=== PATIENT | female | born 1980 | race Caucasian/White ===

== ENCOUNTER 2018-01-20 19:05 | Inpatient (IN) | payer OTHER ==
[~2018-01-20] VITALS: Ht 172.7 cm; Wt 136.1 kg
[~2018-01-20 19:05] MED LIST: ACIDOPHILUS1 EACH PO; AMMONIUM LACTA385 GM TOP; ATORVASTATIN CA40 M1 PO; CLONAZEPAM1 M2 PO; CLOZARIL100 M1 PO; COLACE100 M1 PO; DDAVP0.2 MG PO; DIPHENHYDRAMINE25 M4 PO; DITROPAN XL5 M1 PO; FLUOXETINE HCL20 M2 PO; GABAPENTIN300 M2 PO; HUMALOG100 UNIT/2; IBUPROFEN600 M1 PO; JANUVIA100 M1 PO; LEVOTHYROXINE75 MCG PO; MAGNESIUM OXID400 M1 PO; METFORMIN HCL500 M2 PO; MINIPRESS5 MG PO; NAPROXEN375 M2 PO; NOVOLIN 70100 UNIT/1 SC; PANTOPRAZOLE SO40 M1 PO; PERIOGARD473 ML PO; PROAIR HFA8.5 GM INH; PROVERA10 MG PO; QUETIAPINE FUM100 M1 PO; SENNA8.6 M3 PO; SYMBICORT 16010.2 GM INH; TOPROL XL100 M1 PO; TRAMADOL HCL50 M1 PO
--- NOTE | 2018-01-20 19:36 | ED PSYCHIATRIC COMPLAINT ---
See Addendum History of Present Illness General Chief Complaint: Psychiatric Related Complaint Stated Complaint: BIBA +SI, PT ON PEER Source: patient Exam Limitations: no limitations Vital Signs & Intake/Output Vital Signs & Intake/Output Vital Signs Date Time Temp Pulse Resp B/P B/P Pulse O2 O2 Flow FiO2 Mean Ox Delivery Rate 01/22 1407 97.0 95 18 107/61 95 01/22 0823 97.6 89 18 129/66 94 Room Air 01/21 2123 97.7 81 18 126/75 97 Room Air Allergies Coded Allergies: citalopram (From CELEXA) (Intermediate, RASH 11/30/17) escitalopram (From LEXAPRO) (Intermediate, RASH 11/30/17) lamotrigine (From LAMICTAL) (Intermediate, RASH 11/30/17) aluminum hydroxide (From MAALOX MAXIMUM STRENGTH) (Mild, RASH 11/30/17) magnesium hydroxide (From MAALOX MAXIMUM STRENGTH) (Mild, RASH 11/30/17) simethicone (From MAALOX MAXIMUM STRENGTH) (Mild, RASH 11/30/17) Triage Nurses Notes Reviewed? yes HPI: 37-year-old female presented to the emergency department reporting that about 4 hours ago while she was at the program center she lives in [facility] she was watching TV and she began having thoughts of harming herself. She states that she was watching crime show when she turned onto if this would help however it did not she continue to have these thoughts. She denies any auditory or visual hallucinations. She states after this occurred she broken all of oil bottle and began to cut both of her arms. She states that she was going to cut her neck but she was "too weak". She states that she continues to feel this way in the emergency department. She denies any homicidal ideation. She states that the staff had found her and called 911 and she was brought in by ambulance. She states her only support system is a staff that she has where she lives. She reports numerous incidences in the past with trying to hurt herself. (Lex MELTON,Monica) Reconcile Medications Albuterol Sulfate (Proair Hfa) 90 MCG HFA.AER.AD 1-2 PUF INH Q4P PRN SOB/ WHEEZE (Reported) Atorvastatin Calcium 40 MG TABLET 1 TAB PO QPM CHOLESTEROL (Reported) Budesonide/Formoterol Fumarate (Symbicort 160-4.5 Mcg Inhaler) 160 MCG-4.5 MCG/ ACTUATION HFA.AER.AD 2 PUFF INH BID BREATHING PROBLEMS (Reported) Clonazepam 1 MG TABLET 1 TAB PO TID MENTAL HEALTH (Reported) Clozapine (Clozaril) 100 MG TABLET 4 TAB PO QPM MENTAL HEALTH (Reported) Desmopressin Acetate (Ddavp) 0.2 MG TABLET 1 TAB PO QPM NOCTURNAL ENURESIS ( Reported) Docusate Sodium (Colace) 100 MG CAPSULE 100 MG PO DAILY CONSTIPATION ( Reported) Fluoxetine HCl 20 MG CAPSULE 1 CAP PO DAILY mental health (Reported) Gabapentin 300 MG CAPSULE 600 MG PO TID anxiety Ibuprofen 600 MG TABLET 1 TAB PO Q6-8P PRN PAIN/FEVER (Reported) Insulin Lispro (Humalog) 100 UNIT/ML VIAL (Unknown Dose) DIABETES (Reported) SLIDING SCALE FOLLOWS: 150-199 2 UNITS 200-249 4 UNITS 250-299 6 UNITS 300-349 8 UNITS 350-399 10 UNITS >400 12 UNITS AND CALL Lactobacillus Acidophilus (Acidophilus) 1 EACH CAPSULE 1 CAP PO DAILY GI HEALTH (Reported) Levothyroxine Sodium 75 MCG TABLET 1 TAB PO DAILY AC THYROID PROBLEMS ( Reported) Magnesium Oxide 400 MG TABLET 1 TAB PO DAILY VITAMIN SUPPORT (Reported) Medroxyprogesterone Acetate (Provera) 10 MG TABLET 1 TAB PO QD HORMONE ( Reported) 10 DAYS A MONTH 14TH-24TH Metformin HCl (Metformin HCl ER) 500 MG TAB.ER.24 1,000 MG PO BID DIABETES ( Reported) Metoprolol Succ XL (Toprol XL) 100 MG TAB.ER.24H 100 MG PO DAILY TACHYCARDIA (Reported) Novolin 70/30 (Novolin 70-30 100 Unit/Ml Vial) 100 UNIT/ML (70-30) VIAL 92 UNITS SC BID DIABETES (Reported) Oxybutynin Chloride (Ditropan XL) 5 MG TAB.ER.24 5 MG PO BID BLADDER HEALTH ( Reported) Pantoprazole Sodium 40 MG TABLET.DR 40 MG PO DAILY ACID REFLUX (Reported) Prazosin HCl (Minipress) 5 MG CAPSULE 5 MG PO BID HIGH BLOOD PRESSURE ( Reported) Sennosides (Senna) 8.6 MG TABLET 2 TAB PO BID PRN CONSTIPATION (Reported) Sitagliptin Phosphate (Januvia) 100 MG TABLET 100 MG PO DAILY DIABETES ( Reported) (Bethany MILLER,Ruben) Past History Travel History Traveled to [place] past 21 day No Medical History Any Pertinent Medical History? 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 No (Monica Harrington) Review of Systems Review of Systems Constitutional: Reports: see HPI. EENTM: Reports: no symptoms. Respiratory: Reports: no symptoms. Cardiovascular: Reports: no symptoms. GI: Reports: no symptoms. Genitourinary: Reports: no symptoms. Musculoskeletal: Reports: no symptoms. Skin: Reports: no symptoms. Neurological/Psychological: Reports: see HPI. Hematologic/Endocrine: Reports: no symptoms. Immunologic/Allergic: Reports: no symptoms. All Other Systems: Reviewed and Negative (Monica Harrington) Physical Exam Physical Exam General Appearance: well developed/nourished, no apparent distress, alert, awake , comfortable Head: atraumatic, normal appearance Eyes: Bilateral: normal appearance. Ears, Nose, Throat: hearing grossly normal Neck: normal inspection, full range of motion Respiratory: normal breath sounds, chest non-tender, no respiratory distress Cardiovascular: tachycardia, regular rhythm Extremities: normal range of motion Neurological/Psychiatric: no motor/sensory deficits, awake, alert, depressed affect Appearance/Memory/Insight: disheveled, impaired insight Behavoir/Eye Contact/Speech: cooperative, normal speech, good eye contact Thoughts/Hallucinations: normal thought pattern, no apparent hallucination Skin: normal color, warm/dry, numerous scattered linear lacerations on bilateral upper arms. most lesions have attained hemostasis. 2 lesions on right arm and 1 lesions on left arm are slightly deeper and continue to ooze blood. no signs of infection. minimally tender to touch. dried blood easily irrigated with normal saline. Medical Clearance Statement * patient denies further consideration of suicide * outpt. psych referral * no evidence of toxic ingestion * on re-evaluation the patient is awake and alert with normal speech and normal gait. The patient is clinically sober and safe for discharge / detox referral SAD PERSONS SAD PERSONS Response Value Age <19 or >45 years? yes 1 Depression/Hopelessness? yes 2 Previous Attempts/Psych Care yes 1 Rational Thinking Loss? yes 2 Single//? yes 1 Organized/Serious Attempt yes 2 Social Support? has no support 1 Stated Future Intent? yes 2 Total 12 SAD PERSONS Done? yes (Lex MELTON,Monica) Progress Differential Diagnosis: drug intoxication, electrolyte abnormality, hypoglycemia , suicidal ideation r/t psychosis Plan of Care: Orders Procedure Date/time Status Continuous Observation Monitor 01/22 1900 Active Admit to inpatient psych 01/22 1702 Active Continuous Observation Monitor 01/22 1500 Active Continuous Observation Monitor 01/22 1100 Active Continuous Observation Monitor 01/22 0700 Active Continuous Observation Monitor 01/22 0619 Active Current Medications Sig/Jeff Start time Last Medication Dose Stop Time Status Admin Medroxyprogesterone 10 MG DAILY 01/26 0900 AC Acetate (Provera 10 MG Tab) Nicotine 21 MG DAILY PRN 01/22 1315 UNVr (Nicoderm) Atorvastatin Calcium 40 MG QPM 01/21 2100 UNVr 01/21 (Lipitor) 2200 Clozapine 400 MG QPM 01/21 2100 UNVr 01/21 (Clozaril 100MG Tab) 2200 Metformin HCl 1,000 MG 0800,1700 01/21 1700 UNVr 01/22 (Glucophage) 0754 Calcium Carbonate 500 MG Q4-6 PRN PRN 01/21 1300 UNVr (TUMS) Omeprazole 40 MG DAILY AC 01/21 902 UNVr 01/22 (Prilosec) 0754 Oxybutynin Chloride 5 MG BID 01/21 902 UNVr 01/22 (Ditropan) 0932 Prazosin HCl 5 MG BID 01/21 902 UNVr 01/22 (Minipress 5 MG) 0932 Sitagliptin Phosphate 100 MG DAILY 01/21 902 UNVr 01/22 (JANUVIA) 0932 Insulin Human Isoph/ 92 UNITS BID 01/21 901 UNVr 01/22 Insulin Regular 0932 (Novolin 70/30) Albuterol Sulfate See Dose Q4P PRN 01/21 0900 UNVr (Ventolin) Insts (1) Budesonide/ 2 PUF BID 01/21 900 AC 01/22 Formoterol Fumarate 0932 (Symbicort) Clonazepam 1 MG TID 01/21 900 UNVr 01/22 (Klonopin 1MG Tab) 01/28 0859 1400 Desmopressin Acetate 0.2 MG DAILY 01/21 900 UNVr 01/22 (Ddavp 0.1MG Tab) 0932 Fluoxetine HCl 20 MG DAILY 01/21 900 UNVr 01/21 (Prozac) 1031 Gabapentin 600 MG TID 01/21 900 UNVr 01/22 (Neurontin) 1400 Metoprolol Succinate 100 MG DAILY 01/21 900 UNVr 01/22 (Toprol Xl) 0932 Levothyroxine Sodium 0.075 MG DAILY AC 01/22 852 UNVr 01/22 (Synthroid) 0754 Dose Instructions: (1)Albuterol Sulfate (Ventolin): 1-2 PUF 37 year old female with history of suicide attempts presented with suicidal ideation and self-inflicted lacerationsto bilateral upper extremities. Upper extremity lesions irrigated with normal saline and PA student performed suturing. Signed out to Dr. Uribe. Hand-Off Endorsed To: Roberto Uribe MD Endorsed Time: 2099 Pending: consult, other (suture of laceration) (Monica Harrington) Hand-Off Endorsed To: Delmer Young MD Endorsed Time: 1899 Pending: consult (Ruben Sims MD) Hand-Off Endorsed To: Ruben Sims MD Endorsed Time: 699 Pending: other (BED SEARCH) (Delmer Young MD) Departure Departure Disposition: STILL A PATIENT Condition: Stable Referrals: Unknown (PCP/Family) Departure Forms: Customer Survey General Discharge Information (Monica Harrington) Departure Clinical Impression Primary Impression: Suicidal ideation Secondary Impressions: Injury, self-inflicted, Laceration PA/COMPUTER BOOKKEEPER Co-Sign Statement Statement: ED Attending supervision documentation- [] I saw and evaluated the patient. I have also reviewed all the pertinent lab results and diagnostic results. I agree with the findings and the plan of care as documented in the PA's/COMPUTER BOOKKEEPER's documentation. x[] I have reviewed the ED Record and agree with the PA's/COMPUTER BOOKKEEPER's documentation. [] Additions or exceptions (if any) to the PAs/COMPUTER BOOKKEEPER's note and plan are summarized below: [] (Rony MILLER,Roberto Buckner) Psych Admission Note Psychiatric Admission: I have seen and evaluated JOSIE PATEL. I have also reviewed all the pertinent lab results and diagnostic results. JOSIE PATEL will be admitted to our inpatient Psychiatric unit for treatment and care. Patient was signed out to me by Dr. Sims at 3 PM (Bro Rajput DO) Procedures Laceration/Wound Repair Laceration/Wound Repair: Wound Location: bilateral upper extremities Wound's Depth, Shape: linear Wound Length (cm): 2 Wound Explored: irrigated extensively Irrigated w/ Saline (ccs): 200 Betadine Prep? Yes Anesthesia: 1% lidocaine Volume Anesthetic (ccs): 5 Wound Repaired With: sutures Suture Size/Type: 4:0, nylon Number of Sutures: 13 Sterile Dressing Applied: Yes Tetanus Status: up to date Progress: Procedure performed by PA student with my direct supervision. Multiple superficial lacerations to bilateral forearms. 4 wounds were closed using stitches, these wounds were slightly deeper than the remainder of superficial lacerations. Patient tolerated procedure well. (Miracle Robertson) as documented in the PA's/COMPUTER BOOKKEEPER's documentation. x[] I have reviewed the ED Record and agree with the PA's/COMPUTER BOOKKEEPER's documentation. [] Additions or exceptions (if any) to the PAs/COMPUTER BOOKKEEPER's note and plan are summarized below: [] (Rony MILLER,Roberto Buckner) Procedures Laceration/Wound Repair Laceration/Wound Repair: Wound Location: bilateral upper extremities Wound's Depth, Shape: linear Wound Length (cm): 2 Wound Explored: irrigated extensively Irrigated w/ Saline (ccs): 200 Betadine Prep? Yes Anesthesia: 1% lidocaine Volume Anesthetic (ccs): 5 Wound Repaired With: sutures Suture Size/Type: 4:0, nylon Number of Sutures: 13 Sterile Dressing Applied: Yes Tetanus Status: up to date Progress: Procedure performed by PA student with my direct supervision. Multiple superficial lacerations to bilateral forearms. 4 wounds were closed using stitches, these wounds were slightly deeper than the remainder of superficial lacerations. Patient tolerated procedure well. (Miracle Robertson)
[2018-01-20 21:59] LABS: ABSOLUTE BASOPHIL COUNT 0 /CUMM (0.0-0.2); ABSOLUTE EOSINOPHIL COUNT 0 /CUMM (0.0-0.7); ABSOLUTE LYMPH COUNT 3.4 /CUMM (1.2-3.4); ABSOLUTE MONOCYTE COUNT 0.4 /CUMM (0.10-0.60); BASOPHIL % 0.2 % (0.0-2.0); EOSINOPHIL % 0.1 % (0-5); GRANULOCYTE % 72.5 % (42.2-75.2); HEMATOCRIT 36.2 % (37-47); MEAN CORPUSCULAR HGB 20.8 PG (27.0-31.0); MEAN CORPUSCULAR HGB CONC 30.7 G/DL (33.0-37.0); MEAN CORPUSCULAR VOLUME 67.8 FL (81.0-99.0); MEAN PLATELET VOLUME 8.3 FL (7.4-10.4); PLATELET COUNT 392 /CUMM (130-400); RBC DISTRIBUTION WIDTH 17.9 % (11.5-14.5); RED BLOOD CELL CT 5.35 /CUMM (4.20-5.40); WHITE BLOOD CELL COUNT 13.8 /CUMM (4.8-10.8)
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
--- NOTE | 2018-01-22 11:04 | ED PSYCHIATRIST/APRN CONSULT ---
Psychiatrist/CROWN WHEEL ASSEMBLER ED Consult Assessment and Plan: PROGRESS NOTE SUBJECTIVE: Patient sleeping in Crisis bed, easily awoken to voice. Patient known to this software writer from outside hospital. Patient reports that she has continued SI and thoughts to self-harm continuing today. Patient denies HI/AVH. Patient states that the last couple of weeks have been difficult and that she cut herself worse than usual. Patient states she does not feel safe in the community and feels she needs to be inpatient at this time. Patient requesting nicotine patch. Patient denies other side effects to medications, however feels that they're not as effective as they should be and warrants a medication change. Patient vague on details, reports "I don't know" to many questions, including triggering event. Patient states that she's been able to eat and sleep. No abnormal movements reported. Patient asking if bed available, preferring [facility]. OBJECTIVE: Per staff, patient remains isolative in room with lights out, resting. No complaints. Patient with in behavioral control, adherent with meds and staff instructions. No overnight events. Vital signs stable. Current Medications Sig/Jeff Start time Last Medication Dose Route Stop Time Status Admin Albuterol Sulfate See Dose Q4P PRN 01/21 900 UNVr Insts (1) INH Atorvastatin Calcium 40 MG QPM 01/21 2100 UNVr 01/21 PO 2200 Budesonide/ 2 PUF BID 01/21 900 AC 01/22 Formoterol Fumarate INH 0932 Calcium Carbonate 500 MG Q4-6 PRN PRN 01/21 1300 UNVr PO Clonazepam 0 .STK-MED ONE 01/22 0920 DC PO Clonazepam 0 .STK-MED ONE 01/21 2142 DC PO Clonazepam 0 .STK-MED ONE 01/21 1436 DC PO Clonazepam 1 MG TID 01/21 900 UNVr 01/22 PO 01/28 0859 0932 Clozapine 400 MG QPM 01/21 2100 UNVr 01/21 PO 2200 Desmopressin Acetate 0.2 MG DAILY 01/21 900 UNVr 01/22 PO 0932 Fluoxetine HCl 20 MG DAILY 01/21 900 UNVr 01/21 PO 1031 Gabapentin 0 .STK-MED ONE 01/21 1436 DC PO Gabapentin 600 MG TID 01/21 900 UNVr 01/22 PO 0932 Insulin Human Isoph/ 92 UNITS BID 01/21 901 UNVr 01/22 Insulin Regular SC 0932 Levothyroxine Sodium 0.075 MG DAILY AC 01/22 852 UNVr 01/22 PO 075 Medroxyprogesterone 10 MG DAILY 01/26 900 AC Acetate PO Metformin HCl 1,000 MG 0800,1700 01/21 1700 UNVr 01/22 PO 075 Metoprolol Succinate 100 MG DAILY 01/21 900 UNVr 01/22 PO 0932 Nicotine 21 MG ONCE ONE 01/21 1215 DC 01/21 TOP 01/21 1216 1215 Nicotine 0 .STK-MED ONE 01/21 1159 DC [facility] Omeprazole 0 .STK-MED ONE 01/22 0738 DC PO Omeprazole 40 MG DAILY AC 01/21 902 UNVr 01/22 PO 075 Oxybutynin Chloride 5 MG BID 01/21 902 UNVr 01/22 PO 0932 Prazosin HCl 5 MG BID 01/21 902 UNVr 01/22 PO 0932 Sitagliptin Phosphate 100 MG DAILY 01/21 902 UNVr 01/22 PO 0932 Dose Instructions: (1)Albuterol Sulfate: 1-2 PUF Laboratory Tests 01/20/180: Anion Gap 11, Estimated GFR 57 L, BUN/Creatinine Ratio 9.1, Glucose 113 H, Calcium 9.9, Total Bilirubin 0.3, AST 22, ALT 46, Alkaline Phosphatase 86, Total Protein 6.9, Albumin 3.9, Globulin 3.0, Albumin/Globulin Ratio 1.3, CBC w Diff NO MAN DIFF REQ, RBC 5.35, MCV 67.8 L, MCH 20.8 L, MCHC 30.7 L, RDW 17.9 H, MPV 8.3, Gran % 72.5, Lymphocytes % 24.5, Monocytes % 2.7, Eosinophils % 0.1, Basophils % 0.2, Absolute Granulocytes 10.0 H, Absolute Lymphocytes 3.4, Absolute Monocytes 0.4, Absolute Eosinophils 0, Absolute Basophils 0, Serum Alcohol < 10.0 01/20/18 194: Urine Opiates Screen < 100, Methadone Screen 46, Barbiturate Screen < 60, Ur Phencyclidine Scrn < 6.00, Amphetamines Screen < 100, U Benzodiazepines Scrn < 85, Urine Cocaine Screen < 50, Urine Cannabis Screen < 5.00, Urine Test NEGATIVE Vital Signs Date Time Temp Pulse Resp B/P B/P Pulse O2 O2 Flow FiO2 Mean Ox Delivery Rate 01/22 0823 97.6 89 18 129/66 94 Room Air 01/21 2123 97.7 81 18 126/75 97 Room Air 01/21 1649 97.6 84 18 115/59 97 Room Air 01/21 1422 97.8 84 16 113/61 95 Room Air 01/21 1118 97.7 89 16 120/71 98 Room Air MSE: GENERAL: Resting in bed, speaking minimally, poor eye contact, no apparent distress but with bandages on bilateral arms and healing scars visible. SPEECH: Soft and low, fluent, needed to ask patient to repeat in order to hear her, brief MOTOR: No tics, tremors, stereotypy, or abnormal movements MOOD: "I don't know" AFFECT: Tired, low, mood congruent, constricted range, non-labile, poorly related THOUGHT PROCESS: Logical, linear and goal-directed, but brief THOUGHT CONTENT: +vague SI/SIB, No HI/AVH, no apparent grandiosity, paranoia, delusions, obsessions, ruminations COGNITION: Mildly impaired attention, memory or concentration (appears tired) JUDGMENT: Fair INSIGHT: poor-fair ASSESSMENT: 37-year-old single white female with schizoaffective disorder and borderline personality disorder presenting to the ED after cutting arms which required sutures and worsening thoughts of passive SI. Patient unable to engage in interview in any depth at this time, answering "I don't know" to most questions. Behavior does appear to be escalating and becoming more dangerous. Patient is risk of harm to self and warrants inpatient psychiatric admission for psychiatric stabilization, maintenance of safety, pharmacologic management and aftercare planning. PLAN: -Admitted voluntarily to Inpatient Psychiatry when bed available, if not continue bed search -maintain safety, vs tid, q15min checks -continue meds -Start nicotine patch 21 mg daily -Regular diet -Follow-up labs -No concerns for withdrawal at this time
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
[2018-01-22 19:47] VITALS: BP 140/68
[2018-01-22 20:21] VITALS: BP 140/68
[2018-01-23 07:46] VITALS: BP 125/69
--- NOTE | 2018-01-23 08:59 | CPS PROVIDER INIT ASMT PSYCH ---
Psychiatric Admission [facility] Dentist's Note Reviewed: Yes Patient Seen and Examined: Yes Identifying Information: 37-year-old single white female Chief Complaint: presenting to the ED after cutting arms which required sutures and worsening thoughts of passive SI. Patient unable to engage in interview in any depth at this time, answering "I don't know" to most questions. Behavior does appear to be escalating and becoming more dangerous. Reaction to Hospitalization: The patient was admitted voluntarily History of Present Illness Onset of Illness: since teenage years Patient has extensive psychiatric history and treatments. Circumstances Leading to Admission: per Saira Huerta LCSW's note of 01/22/18: "37-year old female BIBA on PEER from her supportive housing. Pt had cut her wrists with glass and requested to home to [facility] vs [facility] (despite living in [place]). Pt has multiple cuts in various stages of healing on her forearms. Most recent cuts required sutures upon arrival to the ED. Pt has chronic mental health issues. She lives in [facility] ([facility] Pt is currently involved with [facility] ([facility]) in [place]. She sees therapist, Ruchi [phone]. Crisis left message for Ruchi and is awaiting a call back. Pt has had several inpatient hospitalizations, most recent @ [facility] unit 2-3 weeks ago. Prior to that patient was inpatient at [facility] from 11/30/17-12/04/17. Crisis recieved a call from Roberto from [place]. He confirms that the patient was @ [facility] several weeks ago for about 1 week. Pt sees Ruchi weekly and has a visitng nurse." Problem(s) Justifying Need for Admission: self-cutting, some areas requiring sutures Past Psychiatric History Past Diagnosis(es)- if any: Mood Disorder, most likely disruptive mood dysregulation disorder Borderline Peronality Disorder Diabetes, GERD, Left Ear hearing loss, [place], underactive thyroid, urine inconstance, Constipation Past Precipitating Factors- if any: pet hamster went missing - Include inpatient and outpatient treatment Treatment History: Patient seems to have extensive psychiatric history and treatments. Her last inpatient psychiatric admission was at [facility]. The patient before that was at [facility] inpatient psychiatric unit November 30-2017. She reported that she has a psychiatrist and a therapist in [facility]. History of Suicide Attempts or Gestures Reportedly 9 or 10 previous suicide attempts. It is not clear which were true suicide attempts versus self cutting of borderline personality disorder. Substance Abuse History: Denies recent alcohol or substance use and the urine toxicology was clean blood alcohol level was negative History of cocaine and PCP use. History of rehabilitation treatment at [facility]. Allergies: Coded Allergies: citalopram (From CELEXA) (Intermediate, RASH 11/30/17) escitalopram (From LEXAPRO) (Intermediate, RASH 11/30/17) lamotrigine (From LAMICTAL) (Intermediate, RASH 11/30/17) aluminum hydroxide (From MAALOX MAXIMUM STRENGTH) (Mild, RASH 11/30/17) magnesium hydroxide (From MAALOX MAXIMUM STRENGTH) (Mild, RASH 11/30/17) simethicone (From MAALOX MAXIMUM STRENGTH) (Mild, RASH 11/30/17) Home Med List: Atorvastatin Calcium 40 MG TABLET 1 TAB PO QPM CHOLESTEROL (Reported) Entered as Reported by Laurie Richardson on 11/30/17 1448 Budesonide/Formoterol Fumarate (Symbicort 160-4.5 Mcg Inhaler) 160 MCG-4.5 MCG/ ACTUATION HFA.AER.AD 2 PUFF INH BID BREATHING PROBLEMS (Reported) Entered as Reported by Laurie Richardson on 11/30/17 1517 Clonazepam 1 MG TABLET 1 TAB PO TID MENTAL HEALTH (Reported) Entered as Reported by Breann Echevarria on 11/29/17 1801 Clozapine (Clozaril) 100 MG TABLET 4 TAB PO QPM MENTAL HEALTH (Reported) Entered as Reported by Breann Echevarria on 11/29/17 1925 Desmopressin Acetate (Ddavp) 0.2 MG TABLET 1 TAB PO QPM NOCTURNAL ENURESIS ( Reported) Entered as Reported by Laurie Richardson on 11/30/17 1446 Docusate Sodium (Colace) 100 MG CAPSULE 100 MG PO DAILY CONSTIPATION ( Reported) Entered as Reported by Breann Echevarria on 11/29/17 1752 Fluoxetine HCl 20 MG CAPSULE 1 CAP PO DAILY mental health #30 (Reported) Entered as Reported by Rosalee Garcia on 11/30/17 0908 Gabapentin 300 MG CAPSULE 600 MG PO TID anxiety #45 CAP Prescribed by Meet Moses MD on 12/04/17 Lactobacillus Acidophilus (Acidophilus) 1 EACH CAPSULE 1 CAP PO DAILY GI HEALTH (Reported) Entered as Reported by Laurie Richardson on 11/30/17 1511 Levothyroxine Sodium 75 MCG TABLET 1 TAB PO DAILY AC THYROID PROBLEMS ( Reported) Entered as Reported by Laurie Richardson on 11/30/17 1510 Magnesium Oxide 400 MG TABLET 1 TAB PO DAILY VITAMIN SUPPORT (Reported) Entered as Reported by Breann Echevarria on 11/29/17 1928 Medroxyprogesterone Acetate (Provera) 10 MG TABLET 1 TAB PO QD HORMONE ( Reported) Entered as Reported by Laurie Richardson on 11/30/17 1503 Metformin HCl (Metformin HCl ER) 500 MG TAB.ER.24 1,000 MG PO BID DIABETES ( Reported) Entered as Reported by Breann Echevarria on 11/29/17 1749 Metoprolol Succ XL (Toprol XL) 100 MG TAB.ER.24H 100 MG PO DAILY TACHYCARDIA (Reported) Entered as Reported by Breann Echevarria on 11/29/17 175 Novolin 70/30 (Novolin 70-30 100 Unit/Ml Vial) 100 UNIT/ML (70-30) VIAL 92 UNITS SC BID DIABETES (Reported) Entered as Reported by Breann Echevarria on 11/29/17 180 Oxybutynin Chloride (Ditropan XL) 5 MG TAB.ER.24 5 MG PO BID BLADDER HEALTH ( Reported) Entered as Reported by Breann Echevarria on 11/29/17 175 Pantoprazole Sodium 40 MG TABLET.DR 40 MG PO DAILY ACID REFLUX (Reported) Entered as Reported by Breann Echevarria on 11/29/17 175 Prazosin HCl (Minipress) 5 MG CAPSULE 5 MG PO BID HIGH BLOOD PRESSURE ( Reported) Entered as Reported by Breann Echevarria on 11/29/17 175 Sitagliptin Phosphate (Januvia) 100 MG TABLET 100 MG PO DAILY DIABETES ( Reported) Entered as Reported by Laurie Richardson on 11/30/17 1448 Scheduled PRN Medications Albuterol Sulfate (Proair Hfa) 90 MCG HFA.AER.AD 1-2 PUF INH Q4P PRN SOB/ WHEEZE (Reported) Entered as Reported by Laurie Richardson on 11/30/17 1516 Ibuprofen 600 MG TABLET 1 TAB PO Q6-8P PRN PAIN/FEVER (Reported) Entered as Reported by Breann Echevarria on 11/29/17 192 Sennosides (Senna) 8.6 MG TABLET 2 TAB PO BID PRN CONSTIPATION (Reported) Entered as Reported by Breann Echevarria on 11/29/17 1754 Insulin Lispro (Humalog) 100 UNIT/ML VIAL (Unknown Dose) DIABETES (Re - Include any medical condition(s) that may - impact the patient's recovery/remission Past Medical History: DM II, HTN, GERD, Asthma Past History Medical History Neurological: NONE EENT: hearing loss, LEFT EAR Cardiovascular: ON TOPROL XL FOR TACHYCARDIA Respiratory: asthma Gastrointestinal: constipation, GERD Hepatic: NONE Renal: urinary incontinence Musculoskeletal: NONE Psychiatric: anxiety, depression, Personality D/O mood disorder Endocrine: diabetes, UNDERACTIVE THYROID Blood Disorders: NONE Cancer(s): NONE COATER HAND/Reproductive: HPV, CYSTIC OVARIES History of MRSA: Yes History of VRE: No History of CDIFF: No Isolation History: Standard Tetanus Status: up to date Surgical History Surgical History: non-contributory Psychiatric Family/Social Hx Family History Psychiatric Illness: The patient was adopted Substance Use: Patient reports that she does not know the history of her biological family she was adopted. Suicides: Unknown suicides among biological relatives since she was adopted Social History Living Situation: Living at the [facility] in [place] Significant Relationships (family/friends): unknown Education: High school education/GED Vocation/Occupation: Unemployed, disabled Legal: Unknown Healthly Behaviors Screening Tobacco Screening Tobacco Use from ED Docu: Current Daily Use Daily Tobacco Use Amount/Type: => 5 Cigarettes daily - If tobacco counseling indicated - the following topics are required. - #1 Recognizing dangerous situations. - #2 Coping Skills. - #3 Basic information about quitting. Status of Tobacco Cessation Counseling: #1, #2 AND #3 Completed Cessation Med Status Nicotine Patch Ordered Alcohol Screening - ETOH screen POS if BAL >=80 or Audit-C>= M4/F3 Audit-C Score from Diag Assess: 0 Blood Alcohol Level: Laboratory Tests 01/20 2150 Toxicology Serum Alcohol (<10 MG/DL) < 10.0 Alcohol Use Screening Results: Neg per Audit C &/or BAL - If ETOH counseling indicated - the following topics are required. - #1 Express concern about the patient's - drinking at unhealthy levels, include informing - of national norms for moderate drinking: - men <= 14 drinks/week, max 4 drinks/occasion - women <= 7 drinks/week, max 3 drinks/occasion - #2 Providing feedback, including linking alcohol to - negative physical effects (liver injury, hypertension) - negative emotional effects (relationship problems and - depression) - negative occupational consequences (reduced work - performance) - #3 Advising the patient to abstain from alcohol or - to drink below national norms for moderate drinking - (as listed above). Status of ETOH Use Counseling: N/A B/C NO ETOH Use Metabolic Screening - Screen if on a Neuroleptic Medication - Metabolic screening should include: - Blood Pressure, BMI, Glucose or Hgb A1c, & a - Lipid profile from within the past 365 days. Metabolic Screening Patient on a neuroleptic(s) . Enter below results for Hemoglobin A1C, and lipid panel if obtained during the last 365 days. BMI: 45.600 Blood Pressure: 145/78 Laboratory Results From [facility] (If applicable): Lab Cholesterol 106 MG/DL 01/23/18 07 HDL Cholesterol 30 mg/dL L 01/23/18711 Hemoglobin A1c 8.0 % H 01/23/18711 LDL Cholesterol, Calc 36 mg/dL L 01/23/18711 Triglycerides 201 mg/dL H 01/23/18711 Exam and Plan Mental Status Examination Ambulation Status: The patient was steady on her gait. Appearance: Multiple cuts to both arms Attitude towards examiner: Cooperative Psychomotor activity: Normal Behavior: No abnormal or bizarre behaviors Quality of speech: Normal speech Affect: Constricted affect Mood: Reported this. That she has been feeling depressed. Suicidal Ideation: Endorsed suicidal ideation today Homicidal Ideation: Denied homicidal ideation Hallucinations: Denied hallucinations Paranoid/Delusional Material: Denied feeling paranoid, there were no delusions Difficulties with thought organization: She was coherent Insight: Poor Judgment: Poor Orientation: Alert and oriented to time, place, and person. Cognition: Did not sound seem to have difficulties with information processing. Memory Function: No evidence of short-term memory impairment. Estimate of intellectual functioning: Average Assets/Strengths Patient Identified Assets/Strengths: Patient is resourceful and assertive Impression/Plan Impression and Plan: 37-year-old single white female with long history of psychiatric illness and multiple hospitalizations multiple episodes of self cutting and and possibly suicidal attempts Presented to the emergency room after cutting both forearms at different stages some of them requiring sutures. Reportedly this was triggered by her losing her pet hamster - Include all active medical diagnosis that require tx DSM 5 Diagnosis(es): Disruptive mood dysregulation disorder Borderline personality disorder - Initial Tx Plan for Active Psych & Medical Conditions Treatment Plan: Inpatient psychiatric care with safety checks every 15 minutes and Continue same medications as per her outside providers. - Factors that would help patient function - in a less restrictive setting. Factors: The patient will be discharged once she denies suicidal ideation for 2 consecutive days
[2018-01-23 12:12] VITALS: BP 145/78
--- NOTE | 2018-01-23 13:41 | History & Physical ---
General Information and HPI MD Statement: I have seen and personally examined JOSIE PATEL and documented this H&P. The patient is a 37 year old F who presented with a patient stated chief complaint of "nothing is helping"]. Source of Information: patient, family, EMS Exam Limitations: unable to give history History of Present Illness: 37-year-old female who lives in in supportive housing does not feel safe there. Was brought in by ambulance with suicidal ideations. Patient is on a PEE R paper. Patient has several lacerations on her arms some of them required some sutures. Allergies/Medications Allergies: Coded Allergies: citalopram (From CELEXA) (Intermediate, RASH 11/30/17) escitalopram (From LEXAPRO) (Intermediate, RASH 11/30/17) lamotrigine (From LAMICTAL) (Intermediate, RASH 11/30/17) aluminum hydroxide (From MAALOX MAXIMUM STRENGTH) (Mild, RASH 11/30/17) magnesium hydroxide (From MAALOX MAXIMUM STRENGTH) (Mild, RASH 11/30/17) simethicone (From MAALOX MAXIMUM STRENGTH) (Mild, RASH 11/30/17) Home Med list Albuterol Sulfate (Proair Hfa) 90 MCG HFA.AER.AD 1-2 PUF INH Q4P PRN SOB/ WHEEZE (Reported) Atorvastatin Calcium 40 MG TABLET 1 TAB PO QPM CHOLESTEROL (Reported) Budesonide/Formoterol Fumarate (Symbicort 160-4.5 Mcg Inhaler) 160 MCG-4.5 MCG/ ACTUATION HFA.AER.AD 2 PUFF INH BID BREATHING PROBLEMS (Reported) Clonazepam 1 MG TABLET 1 TAB PO TID MENTAL HEALTH (Reported) Clozapine (Clozaril) 100 MG TABLET 4 TAB PO QPM MENTAL HEALTH (Reported) Desmopressin Acetate (Ddavp) 0.2 MG TABLET 1 TAB PO QPM NOCTURNAL ENURESIS ( Reported) Docusate Sodium (Colace) 100 MG CAPSULE 100 MG PO DAILY CONSTIPATION ( Reported) Fluoxetine HCl 20 MG CAPSULE 1 CAP PO DAILY mental health (Reported) Gabapentin 300 MG CAPSULE 600 MG PO TID anxiety Ibuprofen 600 MG TABLET 1 TAB PO Q6-8P PRN PAIN/FEVER (Reported) Insulin Lispro (Humalog) 100 UNIT/ML VIAL (Unknown Dose) DIABETES (Reported) SLIDING SCALE FOLLOWS: 150-199 2 UNITS 200-249 4 UNITS 250-299 6 UNITS 300-349 8 UNITS 350-399 10 UNITS >400 12 UNITS AND CALL Lactobacillus Acidophilus (Acidophilus) 1 EACH CAPSULE 1 CAP PO DAILY GI HEALTH (Reported) Levothyroxine Sodium 75 MCG TABLET 1 TAB PO DAILY AC THYROID PROBLEMS ( Reported) Magnesium Oxide 400 MG TABLET 1 TAB PO DAILY VITAMIN SUPPORT (Reported) Medroxyprogesterone Acetate (Provera) 10 MG TABLET 1 TAB PO QD HORMONE ( Reported) 10 DAYS A MONTH - Metformin HCl (Metformin HCl ER) 500 MG TAB.ER.24 1,000 MG PO BID DIABETES ( Reported) Metoprolol Succ XL (Toprol XL) 100 MG TAB.ER.24H 100 MG PO DAILY TACHYCARDIA (Reported) Novolin 70/30 (Novolin 70-30 100 Unit/Ml Vial) 100 UNIT/ML (70-30) VIAL 92 UNITS SC BID DIABETES (Reported) Oxybutynin Chloride (Ditropan XL) 5 MG TAB.ER.24 5 MG PO BID BLADDER HEALTH ( Reported) Pantoprazole Sodium 40 MG TABLET.DR 40 MG PO DAILY ACID REFLUX (Reported) Prazosin HCl (Minipress) 5 MG CAPSULE 5 MG PO BID HIGH BLOOD PRESSURE ( Reported) Sennosides (Senna) 8.6 MG TABLET 2 TAB PO BID PRN CONSTIPATION (Reported) Sitagliptin Phosphate (Januvia) 100 MG TABLET 100 MG PO DAILY DIABETES ( Reported) Compliance With Home Meds: UNKNOWN Past History Travel History Traveled to [place] past 21 day No Medical History Neurological: NONE EENT: hearing loss, LEFT EAR Cardiovascular: ON TOPROL XL FOR TACHYCARDIA Respiratory: asthma Gastrointestinal: constipation, GERD Hepatic: NONE Renal: urinary incontinence Musculoskeletal: NONE Psychiatric: anxiety, depression, Personality D/O mood disorder Endocrine: diabetes, UNDERACTIVE THYROID Blood Disorders: NONE Cancer(s): NONE 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 Exam & Diagnostic Data Last 24 Hrs of Vital Signs/I&O Vital Signs Date Time Temp Pulse Resp B/P B/P Pulse O2 O2 Flow FiO2 Mean Ox Delivery Rate 07/11 1212 94 145/78 01/23 0954 97.6 97 18 125/69 01/23 0948 97.6 97 18 125/69 01/23 0746 97.6 97 125/69 01/22 2150 84 140/68 01/22 202 98.3 84 140/68 01/22 1947 98.3 84 140/68 01/22 1713 98.8 84 18 106/64 96 Room Air 01/22 1407 97.0 95 18 107/61 95 Intake & Output 01/23 1600 01/23 0800 01/23 0000 Intake Total Output Total Balance Patient 300 lb Weight Physical Exam General Appearance Alert, Oriented X3, No Acute Distress Skin several lacerations in both upper extremities some with sutures HEENT PERRLA, EOMI, Mucous Membr. moist/pink Neck Supple, No JVD Lymphatic Axillary nl, Cervical nl Cardiovascular Regular Rate, No Murmurs Lungs Clear to Auscultation, Normal Air Movement Abdomen Soft, No Tenderness Neurological Exam Findings: Normal Gait, Normal Speech, Strength at 5/5 X4 Ext, Normal Tone, Sensation Intact, Cranial Nerves 3-12 NL, Reflexes 2+ Cranial Nerves II through XII: intact Extremities No Edema, Normal Pulses Vascular Normal Pulses, Pulses Symmetrical Last 24 Hrs of Labs/David: Laboratory Tests 01/23/18 0712: Hemoglobin A1c 8.0 H, Triglycerides 201 H, Cholesterol 106, LDL Cholesterol, Calc 36 L, HDL Cholesterol 30 L, Cholesterol/HDL Ratio 4, TSH &T3 &Free T4 Intrp 3.550 01/22/18 1920: Hemoglobin A1c Cancelled Diagnostic Data ITS Data Unobtainable at this time Assessment/Plan As Ranked By This Provider Problem List: 1. Laceration 2. Injury, self-inflicted 3. Depression 4. Diabetes 5. Hyperlipidemia 6. Suicidal ideation Miscellaneous Miscellaneous Documentation Attending Case Discussed With: Josué MILLER,Meet Primary Care Physician: Unknown Patient sees these Specialists psychiatry Level of Patient Care: ADAN Gagnon Consults Needed: Consulting Specialty: Psychiatry Consulting Physician: Dr. Hill Reason for Consult: depression SI
--- NOTE | 2018-01-23 15:37 | SOCIAL WORKER PROG NOTE PSYCH ---
Social Work Progress Note Progress Note Zoe was in bed around 3pm. She is on a one to one. She preferred to stay in her room to speak. I asked her how things have been since her d/c from here in November? She said she has been in and out of the hospital. She is unhappy and feeling very hopeless, stating "nothing works." She doesn't feel like she wants to live anymore and is continuing to feel suicidal. She reported a plan to hang herself with a sheet in her room. She stated that she doesn't feel safe with herself. She recently cut herself using glass on both arms. She has multiple cuts on both arms. These recent cuts required sutures. She doesn't feel the help she is getting is working. She states she sees her therapist at [facility] weekly for an hour. I asked what they are working on in therapy? She said "it's not therapy it's bullshit." She was in agreement to sign a release for [facility]. She also signed a release for [facility] supportive housing. I told her that the sr. manager corporate communications Delmer called today for an update and was inquiring about a meeting. She said she was okay with me updating Delmer, but did not want a meeting and did not want a visit from anyone. She only wants to see Delmer when she is ready to return home. I told her we would continue to see how she is doing on a daily basis and take it a day at a time. Called Delmer Baker [phone] and left a message.
[2018-01-23 15:59] VITALS: BP 132/68
[2018-01-23 19:57] VITALS: BP 112/67
--- NOTE | 2018-01-23 20:06 | Cons- Endocrinology ---
General Information and HPI Consulting Request Date of Consult: 01/23/18 Requested By: Dr Lyle Reason for Consult: uncontolled diabetes Source of Information: patient, old records Exam Limitations: no limitations History of Present Illness: This 37-year-old woman has a long-standing history of psychiatric disease. She came to the emergency room because she was having thoughts of harming herself. She has a past history of anxiety, depression, PTSD, borderline personality, and substance abuse. The patient has a history of diabetes mellitus type 2 associated with morbid obesity for at least the past 10 years. She has not seen an title camera operator in many years. Her diabetes is being managed by her primary care doctor. She is taking 70/30 NovoLog mix 92 units twice a day which is given before breakfast and before dinner. She also takes Humalog sliding scale 3 times a day on top of her 70/30 insulin. She is also on metformin and Januvia. The patient's hemoglobin A1c is 8%. Her blood sugars since coming to the hospital are 139 before breakfast 113 before dinner and 228 at bedtime last night The patient suffers from morbid obesity. At one time she lost 150 pounds but regained it all. Her diabetes has been complicated by neuropathy for which he takes gabapentin The patient states she does not have any spontaneous menstrual periods. She cycles herself on progesterone to bring about menstrual bleeding. She has been told of polycystic ovaries. She also has a tendency to be incontinent when she is sleeping at night and takes desmopressin. She has a history of hypothyroidism. Allergies/Medications Allergies: Coded Allergies: citalopram (From CELEXA) (Intermediate, RASH 11/30/17) escitalopram (From LEXAPRO) (Intermediate, RASH 11/30/17) lamotrigine (From LAMICTAL) (Intermediate, RASH 11/30/17) aluminum hydroxide (From MAALOX MAXIMUM STRENGTH) (Mild, RASH 11/30/17) magnesium hydroxide (From MAALOX MAXIMUM STRENGTH) (Mild, RASH 11/30/17) simethicone (From MAALOX MAXIMUM STRENGTH) (Mild, RASH 11/30/17) Home Med List: Albuterol Sulfate (Proair Hfa) 90 MCG HFA.AER.AD 1-2 PUF INH Q4P PRN SOB/ WHEEZE (Reported) Atorvastatin Calcium 40 MG TABLET 1 TAB PO QPM CHOLESTEROL (Reported) Budesonide/Formoterol Fumarate (Symbicort 160-4.5 Mcg Inhaler) 160 MCG-4.5 MCG/ ACTUATION HFA.AER.AD 2 PUFF INH BID BREATHING PROBLEMS (Reported) Clonazepam 1 MG TABLET 1 TAB PO TID MENTAL HEALTH (Reported) Clozapine (Clozaril) 100 MG TABLET 4 TAB PO QPM MENTAL HEALTH (Reported) Desmopressin Acetate (Ddavp) 0.2 MG TABLET 1 TAB PO QPM NOCTURNAL ENURESIS ( Reported) Docusate Sodium (Colace) 100 MG CAPSULE 100 MG PO DAILY CONSTIPATION ( Reported) Fluoxetine HCl 20 MG CAPSULE 1 CAP PO DAILY mental health (Reported) Gabapentin 300 MG CAPSULE 600 MG PO TID anxiety Ibuprofen 600 MG TABLET 1 TAB PO Q6-8P PRN PAIN/FEVER (Reported) Insulin Lispro (Humalog) 100 UNIT/ML VIAL (Unknown Dose) DIABETES (Reported) SLIDING SCALE FOLLOWS: 150-199 2 UNITS 200-249 4 UNITS 250-299 6 UNITS 300-349 8 UNITS 350-399 10 UNITS >400 12 UNITS AND CALL Lactobacillus Acidophilus (Acidophilus) 1 EACH CAPSULE 1 CAP PO DAILY GI HEALTH (Reported) Levothyroxine Sodium 75 MCG TABLET 1 TAB PO DAILY AC THYROID PROBLEMS ( Reported) Magnesium Oxide 400 MG TABLET 1 TAB PO DAILY VITAMIN SUPPORT (Reported) Medroxyprogesterone Acetate (Provera) 10 MG TABLET 1 TAB PO QD HORMONE ( Reported) 10 DAYS A MONTH 14TH-24TH Metformin HCl (Metformin HCl ER) 500 MG TAB.ER.24 1,000 MG PO BID DIABETES ( Reported) Metoprolol Succ XL (Toprol XL) 100 MG TAB.ER.24H 100 MG PO DAILY TACHYCARDIA (Reported) Novolin 70/30 (Novolin 70-30 100 Unit/Ml Vial) 100 UNIT/ML (70-30) VIAL 92 UNITS SC BID DIABETES (Reported) Oxybutynin Chloride (Ditropan XL) 5 MG TAB.ER.24 5 MG PO BID BLADDER HEALTH ( Reported) Pantoprazole Sodium 40 MG TABLET.DR 40 MG PO DAILY ACID REFLUX (Reported) Prazosin HCl (Minipress) 5 MG CAPSULE 5 MG PO BID HIGH BLOOD PRESSURE ( Reported) Sennosides (Senna) 8.6 MG TABLET 2 TAB PO BID PRN CONSTIPATION (Reported) Sitagliptin Phosphate (Januvia) 100 MG TABLET 100 MG PO DAILY DIABETES ( Reported) Review of Systems Review of Systems Constitutional: Denies: chills, fever. Cardiovascular: Denies: chest pain. Respiratory: Denies: cough, short of breath. GI: Denies: abdominal pain. Genitourinary: Denies: dysuria. Neurological/Psychological: Reports: anxiety, depressed, numbness. Past History Travel History Traveled to [place] past 21 day No Medical History Neurological: NONE EENT: hearing loss, LEFT EAR Cardiovascular: ON TOPROL XL FOR TACHYCARDIA Respiratory: asthma Gastrointestinal: constipation, GERD Hepatic: NONE Renal: urinary incontinence Musculoskeletal: NONE Psychiatric: anxiety, depression, Personality D/O mood disorder Endocrine: diabetes, UNDERACTIVE THYROID Blood Disorders: NONE Cancer(s): NONE MANUFACTURE SPECIALIST/Reproductive: HPV, CYSTIC OVARIES Surgical History Surgical History: non-contributory Psychosocial History ETOH Use: denies use Illicit Drug Use: denies illicit drug use Exam & Diagnostic Data Last 24 Hrs of Vital Signs/I&O Vital Signs Date Time Temp Pulse Resp B/P B/P Pulse O2 O2 Flow FiO2 Mean Ox Delivery Rate 01/23 1957 99.1 96 112/67 01/23 1559 93 132/68 01/23 1212 94 145/78 01/23 0954 97.6 97 18 125/69 01/23 0948 97.6 97 18 125/69 01/23 0746 97.6 97 125/69 01/22 2150 84 140/68 01/22 2021 98.3 84 140/68 Intake & Output 01/23 1600 01/23 0800 01/23 0000 Intake Total Output Total Balance Patient 300 lb Weight Vital Signs Date Time Temp Pulse Resp B/P B/P Pulse O2 O2 Flow FiO2 Mean Ox Delivery Rate 01/23 1957 99.1 96 112/67 01/23 1559 93 132/68 01/23 1212 94 145/78 01/23 0954 97.6 97 18 125/69 01/23 0948 97.6 97 18 125/69 01/23 0746 97.6 97 125/69 01/22 2150 84 140/68 01/22 2021 98.3 84 140/68 Intake & Output 01/23 1600 01/23 0800 01/23 0000 Intake Total Output Total Balance Patient 300 lb Weight Physical Exam General Appearance: alert, awake, comfortable Head: normal appearance Eyes: Bilateral: normal appearance. Neck: normal inspection Respiratory: wheezing Cardiovascular: regular rate/rhythm Gastrointestinal: normal bowel sounds, soft Labs/David Results: Laboratory Tests 01/23 01/22 0712 1920 Chemistry Hemoglobin A1c (4.2 - 5.8 %) 8.0 H Cancelled Triglycerides (<150 mg/dL) 201 H Cholesterol (<200 MG/DL) 106 LDL Cholesterol, Calc (65 - 129 mg/dL) 36 L HDL Cholesterol (40 - 60 mg/dL) 30 L Cholesterol/HDL Ratio (0.00 - 4.23 %) 4 TSH &T3 &Free T4 Intrp (0.270 - 4.20 uIU/mL) 3.550 Assessment/Plan Assessment/Plan This 37-year-old woman has a long-standing history of type 2 diabetes associated with morbid obesity. She also has a history of amenorrhea, depression. She should be evaluated for [place]'s syndrome. Unfortunately when in the hospital with diagnosis of depression patients often have signs of pseudo-Cathy's when tested. Therefore now is not a good time to test her. Further testing should be done as an outpatient. With regard to her diabetes while in the hospital I would continue the 7030 NovoLog mix 92 units twice a day. We can cover her with plain NovoLog before lunch only. We will monitor her sugars carefully. She should be placed on a consistent carbohydrate to diet. The patient does have some dysphasia and points to the thyroid area. A thyroid ultrasound should be done. Consult Acknowledgment - Thank you for your consult request.
[2018-01-24 07:50] VITALS: BP 112/84
[2018-01-24 11:54] VITALS: BP 129/78
--- NOTE | 2018-01-24 12:03 | CP SOUTH PROGRESS NOTE PSYCH ---
Psych (Inpt) Progress Note Progress Note Vital Signs Date Time Temp Pulse B/P 01/24 1154 90 129/78 01/24 0802 98 112/84 01/24 0750 97.7 98 112/84 01/23 2035 96 11267 01/23 1957 99.1 96 Mental Status & Behavior: The patient is on one-to-one supervision because reported that she made threats that she is going to use the sheets to hang herself. The patient was steady on her feet, multiple cuts to both arms, Cooperative, normal Psychomotor activity, Normal Behavior:/No abnormal or bizarre behaviors. Normal speech. Constricted affect. Reported this. That she has been feeling depressed. Endorsed suicidal ideation today. Denied homicidal ideation. Denied hallucinations. Denied feeling paranoid, there were no delusions. She was coherent. Chronic poor Insight and Poor Judgment and poor impulse control. Alert and oriented to time, place, and person. Did not sound seem to have difficulties with information processing. No evidence of short-term memory impairment. Assessment: 37-year-old Single White female with long history of psychiatric illness and multiple hospitalizations multiple episodes of self cutting and and possibly suicidal attempts. Presented to the emergency room after cutting both forearms at different stages some of them requiring sutures. Reportedly this was triggered by her losing her pet hamster Diagnoses: Disruptive mood dysregulation disorder Borderline personality disorder Treatment Plan: I requested a clozapine blood level for Sunday the 27 of January in a.m. Continue same medications as she did not want any reduction in the Klonopin or the clozapine.
--- NOTE | 2018-01-24 14:05 | ULTRASOUND REPORT ---
EXAMINATION: US THYROID CLINICAL INFORMATION: 37-year-old female with dysphasia. COMPARISON: None TECHNIQUE: Linear transducer tamez-scale and color Doppler examination with attention to the region of the thyroid. FINDINGS: SIZE: Measurements of the thyroid lobes and nodules are given in sagittal, anteroposterior and transverse dimensions respectively. Right Thyroid Lobe: 5.8 x 1.6 x 1.5 cm, volume 7.3 mL. Left Thyroid Lobe: 5.2 x 1.1 x 1.5 cm, volume 4.5 mL. Isthmus: 0.3 cm in maximum AP dimension. PARENCHYMA: The gland echotexture is homogeneous. Thyroid vascularity is normal. RIGHT THYROID LOBE: No nodules. ISTHMUS: No nodules. LEFT THYROID LOBE: No nodules. NODES: No lymphadenopathy is seen in the tissue surrounding the thyroid gland. IMPRESSION: Normal-sized thyroid gland demonstrating homogeneous echotexture and normal vascularity. No discrete thyroid nodules visualized.
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
[2018-01-24 16:08] VITALS: BP 137/72
[2018-01-24 19:52] VITALS: BP 124/69
--- NOTE | 2018-01-25 07:43 | CP SOUTH PROGRESS NOTE PSYCH ---
Psych (Inpt) Progress Note Progress Note Treatment team (SALO, RN, Group/Activities Therapist, and Psychiatrist) discussed the pt.'s progress, inpatient treatment plan, and aftercare/discharge plans. Vital Signs Date Time Temp Pulse B/P B/P O2 FiO2 01/25 0806 89 125/74 01/25 0806 89 125/74 01/25 0805 97.1 89 125/74 01/24 2023 92 124/69 01/24 1952 98.8 92 124/69 01/24 1608 91 137/72 Mental Status & Behavior: The patient had a sudden change of heart yesterday: she told Jael Freire LCSW that she is no longer suicidal and wanted to discharge "tomorrow" (today). The patient was steady on her feet, cooperative, normal psychomotor activity, no abnormal or bizarre behaviors. Normal speech, constricted affect. feeling "better", denied feeling hopeless, denied feeling worthless, denied suicidal ideation today. Denied homicidal ideation. Denied hallucinations. Denied feeling paranoid, there were no delusions. She was coherent. Alert and oriented to time, place, and person. Did not sound seem to have difficulties with information processing. No evidence of short-term memory impairment. Assessment: Zoe is a 37-year-old Single White Female with long history of self-cutting, multiple hospitalizations, ? past suicidal attempts. Presented to the emergency room after cutting both forearms, some cuts requiring sutures. Reportedly this was triggered by her losing her pet hamster Diagnoses: Disruptive mood dysregulation disorder Borderline personality disorder Treatment Plan: D/C Home today
[2018-01-25 08:05] VITALS: BP 125/74
[2018-01-25] MEDS ORDERED: MINIPRESS5 MG PO (10:10)
[2018-01-25] MEDS ORDERED: JANUVIA100 M1 PO (10:10)
[2018-01-25] MEDS ORDERED: FLUOXETINE HCL20 M2 PO (10:10)
[2018-01-25] MEDS ORDERED: OS-CAL 500+D31 EACH PO (10:10)
[2018-01-25] MEDS ORDERED: SENNA8.6 M3 PO (10:10)
[2018-01-25] MEDS ORDERED: METFORMIN HCL500 M2 PO (10:10)
[2018-01-25] MEDS ORDERED: NOVOLOG MI100 UNIT/2 SC (10:10)
[2018-01-25] MEDS ORDERED: GABAPENTIN300 M2 PO (10:10)
[2018-01-25] MEDS ORDERED: COLACE100 M1 PO (10:10)
[2018-01-25] MEDS ORDERED: IBUPROFEN600 M1 PO (10:10)
[2018-01-25] MEDS ORDERED: CLONAZEPAM1 M2 PO (10:10)
[2018-01-25] MEDS ORDERED: TOPROL XL100 M1 PO (10:10)
[2018-01-25] MEDS ORDERED: SYMBICORT 16010.2 GM INH (10:10)
[2018-01-25] MEDS ORDERED: MAGNESIUM OXID400 M1 PO (10:10)
[2018-01-25] MEDS ORDERED: PANTOPRAZOLE SO40 M1 PO (10:10)
[2018-01-25] MEDS ORDERED: PROAIR HFA8.5 GM INH (10:10)
[2018-01-25] MEDS ORDERED: ATORVASTATIN CA40 M1 PO (10:10)
[2018-01-25] MEDS ORDERED: CLOZARIL100 M1 PO (10:10)
[2018-01-25] MEDS ORDERED: PROVERA10 MG PO (10:14)
[2018-01-25] MEDS ORDERED: DDAVP0.2 MG PO (10:14)
[2018-01-25] MEDS ORDERED: DITROPAN XL5 M1 PO (10:14)
[2018-01-25] MEDS ORDERED: LEVOTHYROXINE75 MCG PO (10:14)
[2018-01-25] MEDS ORDERED: NOVOLIN 70100 UNIT/1 SC (10:25)
[2018-01-25] MEDS ORDERED: HUMALOG100 UNIT/2 SC (10:25)
[2018-01-25] MEDS ORDERED: BACITRACIN ZIN120 GM TOP (10:25)
--- NOTE | 2018-01-25 10:27 | Patient Discharge Instructions ---
Psych Discharge Inst General Discharge Information Reason for Admission: self-cutting Psy Discharge Primary Diag+ Disruptive Mood Dysregula Psy Discharge Secondary Diag+ Borderline Personality DO Summary Tests/Major Procedures Lab Cholesterol 106 MG/DL 01/23/18711 Cholesterol/HDL Ratio 4 % 01/23/18711 HDL Cholesterol 30 mg/dL L 01/23/18711 Hemoglobin A1c 8.0 % H 01/23/18711 LDL Cholesterol, Calc 36 mg/dL L 01/23/18711 TSH &T3 &Free T4 Intrp 3.550 uIU/mL 01/23/18711 Triglycerides 201 mg/dL H 01/23/18711 Studies Pending at DC: clozapine level Patient Instructions Contact Information Your Psychiatrist on [facility] was Josué MILLER,Meet * If you are experiencing an emergency related to this hospitalization, please call [phone] to contact the treating psychiatrist or the psychiatrist-on- call. * To Request a copy of your medical records, please contact the Medical Records Department at [phone]. * To request results of studies pending at the time of discharge, please call [phone]. * Continue your Medications until directed to stop by your Healthcare provider. General Medication Information Please continue to take your new medications and your continued home medications , unless otherwise indicated on your discharge medication list, or unless directed by your MD or COMPENSATOR WORKER to stop them. Special Instructions Diet Diabetic Activity Normal - Tobacco Use Treatment Offered Post DC Medications Offered: Refused Tob Medication Tx Post DC Tobacco Treatment Plan: Refused Tobacco Tx Pgm - EtOH/Drug Use D/O Treatment Offered Post DC Medications Offered: NA-No EtOH/Drug Use D/O Post DC EtOH/SubAbuse TX Plan: NA-No EtOH/Drug Use D/O Metabolic Screening Patient on a neuroleptic(s) . Enter below results for Hemoglobin A1C, and lipid panel if obtained during the last 365 days. BMI: 45.600 Blood Pressure: 125/74 Laboratory Results From [facility] (If applicable): Lab Cholesterol 106 MG/DL 01/23/18711 Cholesterol/HDL Ratio 4 % 01/23/18711 HDL Cholesterol 30 mg/dL L 01/23/18711 Hemoglobin A1c 8.0 % H 01/23/18711 LDL Cholesterol, Calc 36 mg/dL L 01/23/18711 TSH &T3 &Free T4 Intrp 3.550 uIU/mL 01/23/18711 Triglycerides 201 mg/dL H 01/23/18711 Advance Directives Does the Patient have Medical Advance Directives No/Refused further info Does Pt have Psychiatric Advance Directives? No/Refused further info Does Patient have a Designated Surrogate Decision Maker: No Information About Psychiatric Advance Directives Provided? Refused Discharge Plan Post Hospital Treatment Plan: HC
--- NOTE | 2018-01-25 10:32 | SOCIAL WORKER PROG NOTE PSYCH ---
Social Work Progress Note Progress Note Zoe, Dr. Moses and met this morning. Zoe is feeling much better. Goal/ future oriented. No current thoughts of suicide. She stated she wants to find meaning in her life. "I want to live a life." Asked what her safety plan would be if she were to have thoughts to hurt herself? She said she would try and talk to staff earlier, she would try avoid watching horror movies and watch more comedies. She talked about doing more walking and using her [employer] machine. Asked about plans for this weekend? She said she is looking to take a shower, do laundry, and watch movies. She mentioned increased time with [facility] staff is helpful and that they have a plan to provide her extra one on one time. Medications were reviewed with Dr. Moses. No significant changes were made during this admission. She is very aware of what meds she is prescribed and when she takes them. She signed a release for her [facility] (Patient [facility]). She likes having them come once a day. I told her I would be following up with Delmer Baker and Ruchi (therapist) to discuss her d/c. Called Delmer Baker and informed him that Zoe was ready to go home today. Updated him on her mental status and some ideas about safety planning. He said he will need to call me back to see about picking her up later, if not she may need [facility]. I left a message with her therapist Ruchi at [facility] [phone]. Ruchi left a message with Zoe's follow up appts. She will see her on Thursday 02/[address] Moss. She was not surprised to hear Zoe's quick turn around. Called [facility] to resume services for tomorrow. They will see her tomorrow morning. Their fax number for d/c paperwork is [phone]. Spoke with Delmer later in the afternoon he said he would scrap picker Zoe at 3: 30pm. Also mentioned that he spoke with her nurses and someone would be out to see her today.
--- NOTE | 2018-01-25 11:39 | DISCHARGE SUMMARY REPORT-PSYCH ---
Visit Information Visit Dates/Diagnosis' Admission Date: 01/22/18 Discharge Date: 01/25/18 Reason for Admission: self-cutting Psy Discharge Primary Diag: Disruptive Mood Dysregula Psy Discharge Secondary Diag: Borderline Personality DO Hospital Course Significant Lab Findings: Lab Cholesterol 106 MG/DL 01/23/18711 HDL Cholesterol 30 mg/dL L 01/23/18711 Hemoglobin A1c 8.0 % H 01/23/18711 LDL Cholesterol, Calc 36 mg/dL L 01/23/18711 Triglycerides 201 mg/dL H 01/23/18711 Course Complications: Did not have any complications while she was on the inpatient psychiatric unit. Consultations: Physical Exam General Appearance Alert, Oriented X3, No Acute Distress Skin several lacerations in both upper extremities some with sutures HEENT PERRLA, EOMI, Mucous Membr. moist/pink Neck Supple, No JVD Lymphatic Axillary nl, Cervical nl Cardiovascular Regular Rate, No Murmurs Lungs Clear to Auscultation, Normal Air Movement Abdomen Soft, No Tenderness Neurological Exam Findings: Normal Gait, Normal Speech, Strength at 5/5 X4 Ext, Normal Tone, Sensation Intact, Cranial Nerves 3-12 NL, Reflexes 2+ Cranial Nerves II through XII: intact Extremities No Edema, Normal Pulses Vascular Normal Pulses, Pulses Symmetrical Last 24 Hrs of Labs/David: Laboratory Tests 01/23/18711: Hemoglobin A1c 8.0 H, Triglycerides 201 H, Cholesterol 106, LDL Cholesterol, Calc 36 L, HDL Cholesterol 30 L, Cholesterol/HDL Ratio 4, TSH &T3 &Free T4 Intrp 3.550 01/22/18 1920: Hemoglobin A1c Cancelled Diagnostic Data ITS Data Unobtainable at this time Assessment/Plan As Ranked By This Provider Problem List: 1. Laceration 2. Injury, self-inflicted 3. Depression 4. Diabetes 5. Hyperlipidemia 6. Suicidal ideation Miscellaneous Miscellaneous Documentation Attending Case Discussed With: Josué MILLER,Meet Primary Care Physician: Unknown Patient sees these Specialists psychiatry Level of Patient Care: [facility] <Electronically signed by Stephen Lyle MD> 01/23/18 Allergies: Coded Allergies: citalopram (From CELEXA) (Intermediate, RASH 11/30/17) escitalopram (From LEXAPRO) (Intermediate, RASH 11/30/17) lamotrigine (From LAMICTAL) (Intermediate, RASH 11/30/17) aluminum hydroxide (From MAALOX MAXIMUM STRENGTH) (Mild, RASH 11/30/17) simethicone (From MAALOX MAXIMUM STRENGTH) (Mild, RASH 11/30/17) Hospital Course/TX Response: 01/23/2018: Impression and Plan: 37-year-old single white female with long history of psychiatric illness and multiple hospitalizations multiple episodes of self cutting and and possibly suicidal attempts Presented to the emergency room after cutting both forearms at different stages some of them requiring sutures. Reportedly this was triggered by her losing her pet hamster Diagnosis(es): Disruptive mood dysregulation disorder Borderline personality disorder Treatment Plan: Inpatient psychiatric care with safety checks every 15 minutes and Continue same medications as per her outside providers. 01/24/2018: No changes in patient's psychotropic medications. 01/25/2018: The patient had a sudden change of heart yesterday: she told Jael Freire LCSW that she is no longer suicidal and wanted to discharge "tomorrow" (today). The patient was steady on her feet, cooperative, normal psychomotor activity, no abnormal or bizarre behaviors. Normal speech, constricted affect. feeling "better", denied feeling hopeless, denied feeling worthless, denied suicidal ideation today. Denied homicidal ideation. Denied hallucinations. Denied feeling paranoid, there were no delusions. She was coherent. Alert and oriented to time, place, and person. Did not sound seem to have difficulties with information processing. No evidence of short-term memory impairment. Assessment: Zoe is a 37-year-old Single White Female with long history of self-cutting, multiple hospitalizations, ? past suicidal attempts. Presented to the emergency room after cutting both forearms, some cuts requiring sutures. Reportedly this was triggered by her losing her pet hamster Diagnoses: Disruptive mood dysregulation disorder Borderline personality disorder Treatment Plan: D/C Home today Discharge HBIPS - Tobacco Use Treatment Offered Post DC Medications Offered: Refused Tob Medication Tx Post DC Tobacco Treatment Plan: Refused Tobacco Tx Pgm - EtOH/Drug Use D/O Treatment Offered Post DC Medications Offered: NA-No EtOH/Drug Use D/O Post DC EtOH/SubAbuse TX Plan: NA-No EtOH/Drug Use D/O Metabolic Screening - Screen if on a Neuroleptic Medication - Metabolic screening should include: - Blood Pressure, BMI, Glucose or Hgb A1c, & a - Lipid profile from within the past 365 days. Metabolic Screening Patient on a neuroleptic(s) . Enter below results for Hemoglobin A1C, and lipid panel if obtained during the last 365 days. BMI: 45.600 Blood Pressure: 124/70 Laboratory Results From [facility] (If applicable): Lab Cholesterol 106 MG/DL 01/23/18 07 HDL Cholesterol 30 mg/dL L 01/23/18 07 Hemoglobin A1c 8.0 % H 01/23/18 07 LDL Cholesterol, Calc 36 mg/dL L 01/23/18 07 Triglycerides 201 mg/dL H 01/23/18 07 Discharge Instructions General Discharge Information Multiple Neuroleptics: Not Applicable Discharge Diet Diabetic Discharge Activity Normal DC Disposition: Home/ISLIP Referrals Ordered Referrals Provider Referral 02/01/18 For Groups: [[facility]] [facility] appt. with therapist Ruchi and Dr. Moss 02/01/[address] [place] [address] Provider Referral 01/26/18 For Groups: [[facility]] [facility] services to resume Friday 01/26 am Patient receives 7 day a week med administration [phone] Provider Referral 02/06/18 For Groups: Outpatient Psychiatry [facility]ess[facility] 02/06/18 4pm [address] [place], [place] Prescriptions Stop taking the following medications: Lactobacillus Acidophilus (Acidophilus) 1 EACH CAPSULE ORAL DAILY Continue taking these medications: Albuterol Sulfate (Proair Hfa) 90 MCG HFA.AER.AD 1-2 Puff Inhale through mouth EVERY 4 HOURS NEEDED as needed for SOB/ WHEEZE Qty = 1 Comments: NOT GIVEN IN HOSPITAL This prescription has been renewed Atorvastatin Calcium (Atorvastatin Calcium) 40 MG TABLET 1 Tablet ORAL Every night Qty = 30 Comments: Last Taken:01/24/18 Time:10pm This prescription has been renewed Prazosin HCl (Minipress) 5 MG CAPSULE 5 Milligram ORAL TWICE DAILY Qty = 60 Comments: Last Taken:01/25/18 Time:8am This prescription has been renewed Metoprolol Succ XL (Toprol XL) 100 MG TAB.ER.24H 100 Milligram ORAL DAILY Qty = 30 Comments: Last Taken:01/25/18 Time:8am This prescription has been renewed Ibuprofen (Ibuprofen) 600 MG TABLET 1 Tablet ORAL Every 6-8 Hours as Needed as needed for PAIN/FEVER Qty = 60 Comments: NOT GIVEN IN HOSPITAL This prescription has been renewed Clonazepam (Clonazepam) 1 MG TABLET 1 Tablet ORAL THREE TIMES DAILY Qty = 45 Comments: Last Taken:01/25/18 Time:2pm This prescription has been renewed Gabapentin (Gabapentin) 300 MG CAPSULE 600 Milligram ORAL THREE TIMES DAILY Qty = 45 Comments: Last Taken:01/25/18 Time:2pm This prescription has been renewed Fluoxetine HCl (Fluoxetine HCl) 20 MG CAPSULE 1 Capsule ORAL DAILY Qty = 30 Comments: Last Taken:01/25/18 Time:8am This prescription has been renewed Clozapine (Clozaril) 100 MG TABLET 4 Tablet ORAL Every night Qty = 60 Comments: Last Taken:01/24/18 Time:10pm This prescription has been renewed Budesonide/Formoterol Fumarate (Symbicort 160-4.5 Mcg Inhaler) 160 MCG-4.5 MCG/ ACTUATION HFA.AER.AD 2 PUFF Inhale through mouth TWICE DAILY Qty = 1 Comments: Last Taken:01/25/18 Time:8am This prescription has been renewed Magnesium Oxide (Magnesium Oxide) 400 MG TABLET 1 Tablet ORAL DAILY Qty = 30 Comments: Last Taken:01/25/18 Time:8am This prescription has been renewed Docusate Sodium (Colace) 100 MG CAPSULE 100 Milligram ORAL DAILY Qty = 30 Comments: NOT GIVEN IN HOSPITAL This prescription has been renewed Sennosides (Senna) 8.6 MG TABLET 2 Tablet ORAL TWICE DAILY as needed for CONSTIPATION Qty = 30 Comments: NOT TAKEN IN HOSPITAL This prescription has been renewed Pantoprazole Sodium (Pantoprazole Sodium) 40 MG TABLET.DR 40 Milligram ORAL DAILY Qty = 30 Comments: Last Taken:01/25/18 Time:6am PRILOSEC SUBSTITUTED IN HOSPITAL This prescription has been renewed Metformin HCl (Metformin HCl ER) 500 MG TAB.ER.24 1,000 Milligram ORAL TWICE DAILY Qty = 90 Comments: Last Taken:01/25/18 Time:8am This prescription has been renewed Sitagliptin Phosphate (Januvia) 100 MG TABLET 100 Milligram ORAL DAILY Qty = 30 Comments: Last Taken:01/25/18 Time:8am This prescription has been renewed Desmopressin Acetate (Ddavp) 0.2 MG TABLET 1 Tablet ORAL Every night Qty = 30 Comments: Last Taken:01/25/18 Time:8am This prescription has been renewed Levothyroxine Sodium (Levothyroxine Sodium) 75 MCG TABLET 1 Tablet ORAL DAILY BEFORE BREAKFAST Qty = 30 Comments: Last Taken:01/25/18 Time:6am This prescription has been renewed Oxybutynin Chloride (Ditropan XL) 5 MG TAB.ER.24 5 Milligram ORAL TWICE DAILY Qty = 30 Comments: Last Taken:01/25/18 Time:8am This prescription has been renewed Start taking the following new medications: Calcium Carbonate/Vitamin D3 (Os-Dominic 500+D3 Caplet) 500 MG-600 TABLET 500 Milligram ORAL DAILY Qty = 30 No Refills Comments: Last Taken:01/25/18 Time:8am Bacitracin (Bacitracin Zinc) 500 UNIT/GRAM OINT...G. 1 Application On the skin Every 12 hours as needed as needed for SUTURES Qty = 1 No Refills Comments: Last Taken:01/24/18 Time:8am Insulin Aspart Protam & Aspart (Novolog Mix 70-30 Flexpen Syrn) 100 UNIT/ML (70- 30) INSULN.PEN 92 Units Inject into fatty tissue TWICE DAILY Qty = 1 No Refills Comments: Last Taken:01/25/18 Time:8am The following medications have been changed: Old: Insulin Lispro (Humalog) 100 UNIT/ML VIAL Unknown Dose New: Insulin Lispro (Humalog) 100 UNIT/ML VIAL Unknown Dose Inject into fatty tissue 3 TIMES DAILY BEFORE MEALS Qty = 1 Instructions: SLIDING SCALE FOLLOWS: 150-199 2 UNITS 200-249 4 UNITS 250-299 6 UNITS 300-349 8 UNITS 350-399 10 UNITS >400 12 UNITS AND CALL MD Comments: REFUSED Old: Medroxyprogesterone Acetate (Provera) 10 MG TABLET 1 Tablet ORAL QD New: Medroxyprogesterone Acetate (Provera) 10 MG TABLET 1 Tablet ORAL DAILY Qty = 10 Instructions: 10 DAYS A MONTH - Comments: NOT GIVEN IN HOSPITAL Studies Pending at Discharge clozapine level Copies To: [facility]
[2018-01-25 12:04] VITALS: BP 124/70
--- NOTE | 2018-01-25 16:14 | SOCIAL WORKER PROG NOTE PSYCH ---
Social Work Progress Note Faxed Referral(s) 1 Referred To: HC Transition of Care Documents sent: Health Summary Faxed to: Ruchi Linares and Dr. Moss Fax #: [phone] Faxed by: Jael Freire Date faxed: 01/25/18 Time Faxed: [phone] Faxed Referral(s) 2 Referred To: [facility] Transition of Care Documents sent: Health Summary Faxed to: [facility] Fax #: [phone] Faxed by: Jael Freire Date faxed: 01/25/18 Time Faxed: [phone]
== END 2018-01-25 15:33 | DRG 753 ==
LOC: ERH 19:05 → CP SOUTH 01-22 17:02 → ERHI 01-22 17:02 → ENTRNSPT 01-22 19:23 → EDTRNSPT 01-22 19:30 → EDTRNSPTSTS 01-22 19:30 → CP SOUTH 01-22 19:37 → CMPTRNSPT 01-22 19:40 → CP SOUTH 01-23 11:03
PROVIDERS: Pediatrics; Psychiatry & Neurology Psychiatry
DX: F34.81 Disruptive mood dysregulation disorder (principal); F60.3 Borderline personality disorder
CPT/HCPCS: 36415; 80307; 81025; G0463; G0480; J2001; J3490; J7508